=== PATIENT | male | born 1945 | race Caucasian/White ===

== ENCOUNTER 2016-09-05 07:23 | Inpatient (IN) | payer OTHER ==
[2016-08-18 08:36] VITALS: BMI 29.0
--- NOTE | 2016-08-18 13:04 | PAT Medication Instructions ---
Service Date Aug 18, 2016. Current Home Medication List Budesonide (Entocort Ec), 3 CAP PO BID Bupropion (Wellbutrin Sr), 150 MG PO BID Cholecalciferol (Vitamin D3), 1 CAP PO QAM Cyanocobalamin (Vitamin B-12), 1 TAB PO QAM Folic Acid (Folvite), 1 MG PO DAILY PRN for PRN Hydrocodone/Acetaminophen 5MG/325MG ([place] 5MG/325MG), 1 TABLET PO BID PRN for Pain Lactobacillus (Probiotic), 1 CAP PO DAILY PRN for PRN Loperamide Hcl (Imodium), 2 MG PO DAILY PRN for PRN Meloxicam (Meloxicam), 15 MG PO QAM Multiple Vitamin (Multivitamin), 1 TAB PO QAM Vitamins W/ Lipotropics (Lipoflavonoid), 1 TAB PO QAM Medication Instructions For Your Scheduled Surgery - Hold the following medications 7 days prior to surgery per surgeon instructions: Meloxicam (Meloxicam), 15 MG PO QAM - Hold the following medications the morning of surgery: Multiple Vitamin (Multivitamin), 1 TAB PO QAM Loperamide Hcl (Imodium), 2 MG PO DAILY PRN for PRN Lactobacillus (Probiotic), 1 CAP PO DAILY PRN for PRN Cholecalciferol (Vitamin D3), 1 CAP PO QAM Cyanocobalamin (Vitamin B-12), 1 TAB PO QAM Folic Acid (Folvite), 1 MG PO DAILY PRN for PRN Vitamins W/ Lipotropics (Lipoflavonoid), 1 TAB PO QAM - Take the following medications the morning of surgery with a sip of water: Hydrocodone/Acetaminophen 5MG/325MG ([place] 5MG/325MG), 1 TABLET PO BID PRN for Pain (can take up to four hours prior to surgery if needed) Bupropion (Wellbutrin Sr), 150 MG PO BID Budesonide (Entocort Ec), 3 CAP PO BID - Take the following medications as scheduled the night before surgery: Hydrocodone/Acetaminophen 5MG/325MG ([place] 5MG/325MG), 1 TABLET PO BID PRN for Pain Bupropion (Wellbutrin Sr), 150 MG PO BID If you have any questions please call us at [phone] or [phone] ( [place]) or [phone]
[2016-08-18 13:36] LABS: BASO % 0.5 %; BASO ABS # 0.03 K/uL (0-0.2); COMPLETE YES; EOS % 2.7 %; HEMATOCRIT 49.4 % (42-52); IG% 0.5 %; LYMPH % 8.7 %; LYMPH ABS # 0.57 K/uL (1.2-3.4); MEAN CELL VOLUME 85.9 fL (80-100); MEAN CORPUSCULAR HGB CONC 33.8 g/dl (32-36); MEAN PLATELET VOLUME 11.2 fL (7.4-10.4); MONO % 10.4 %; NEUT % 77.2 %; PLATELET COUNT 150 K/uL (130-400); RED BLOOD COUNT 5.75 M/uL (4.7-6.1); WHITE BLOOD COUNT 6.56 K/uL (4.8-10.8)
[2016-08-18 13:45] LABS: URINE APPEARANCE CLEAR (CLEAR); URINE BILIRUBIN NEG (NEG); URINE COLOR DK YELLOW; URINE NITRITE NEG (NEG); URINE SPECIFIC GRAVITY 1.028 (1.000-1.030); UROBILINOGEN NEG (NEG); ZZUR CULT IF INDIC CLEAN CATCH NO
--- NOTE | 2016-08-18 13:46 | DIAGNOSTIC IMAGING REPORT ---
TWO VIEW CHEST CLINICAL HISTORY: Preoperative examination. FINDINGS: PA and lateral chest radiographs are obtained. No prior studies are available for comparison at the time of dictation. The heart is top normal in size. The mediastinal contour is within normal limits. The lungs and pleural spaces are clear. There is no pneumothorax. The bony thorax appears intact. Surgical clips are noted in the left chest. IMPRESSION: No active disease in the chest. Electronically signed by: Silverio Garcia M.D. 08/18/2016 1:45 PM Dictated Date/Time: 08/18/2016 1:44 PM
[2016-08-18 13:53] LABS: MANUAL MICROSCOPIC REQUIRED? NO; REVIEW REQ? NO
[2016-08-18 13:58] LABS: PROTHROMBIN TIME (PATIENT) 10.2 SECONDS (9.0-12.0)
[2016-08-18 14:52] LABS: BUN/CREATININE RATIO 15.1 (10-20); CALCIUM 9.6 mg/dl (8.5-10.1); CREATININE 1.4 mg/dl (0.60-1.40); POTASSIUM 3.9 mmol/L (3.5-5.1)
--- NOTE | 2016-09-01 16:08 | HISTORY & PHYSICAL EXAMINATION ---
DATE OF ADMISSION: 09/05/2016 CHIEF COMPLAINT: Left hip pain. HISTORY OF PRESENT ILLNESS: Mr. Stevens is a 70-year-old male with left hip pain since 2011. His pain has gotten worse over the last year. He rates his pain a 6/10. He has pain with his daily activities. He has limited standing and walking tolerance. Pain is worse with weightbearing. The patient has had Mobic and ambulates with a cane. He has been on Medrol Dosepak as well as Whitefish with minimal relief. He has failed conservative treatment and is scheduled for left hip replacement. PAST MEDICAL HISTORY: Osteoarthritis, melanoma, BPH and Crohn's. He denies heart disease, diabetes or DVT. PAST SURGICAL HISTORY: Ileocecectomy 07/26/1999, reversal, closure of loop ileostomy 1999, melanoma excision 2005. SOCIAL HISTORY: The patient denies alcohol or tobacco use. He lives in a single floor home. He is and retired. FAMILY HISTORY: Negative for DVT. MEDICATIONS: Meloxicam 15 mg half tablet b.i.d. Entocort twice daily, loperamide 2 mg p.r.n., Lotrisone p.r.n., Wellbutrin 2 tablets daily, chlorhexidine oral rinse, folic acid 1 mg daily, probiotic, lipoflavonoid, multivitamin, MSM, vitamin B12, vitamin D3 and [place] 5/325. ALLERGIES: PENTASA AND DEMEROL. REVIEW OF SYSTEMS: See HPI. Ten other systems reviewed, all negative. PHYSICAL EXAMINATION: VITAL SIGNS: Height 5 feet 10, weight 203 pounds, BMI is 30. GENERAL: This is a well-developed, well-nourished male who is alert and oriented x3. Mood and affect are appropriate. HEENT: Normocephalic, atraumatic. Mucous membranes are moist and intact. NECK: Supple without lymphadenopathy. HEART: Regular rate and rhythm without murmurs, rubs or gallops. LUNGS: Clear to auscultation without wheezes or rhonchi. ABDOMEN: Soft and nontender. Bowel sounds are equal and active. EXTREMITIES: No ecchymosis, redness or warmth. Thigh and calf are soft and nontender. Log roll of the hip reproduces pain in the groin. He is neurovascularly intact with +5/5 strength. X-RAY EXAMINATION: AP and lateral views show joint space narrowing and osteophyte formation with partial collapse of the femoral head. IMPRESSION: Degenerative joint disease, left hip. PLAN: The patient will be admitted for a left total hip arthroplasty. We will plan on aspirin for DVT prophylaxis. The patient will have [facility] for home physical therapy. JAYCE
[~2016-09-05] VITALS: Ht 177.8 cm; Wt 92.3 kg
[2016-09-05] VITALS (9 sets, daily range): BP systolic 113–168; BP diastolic 63–97; PULSE 71–104; TEMP 36.3–36.7; O2SAT 94–100; Ht 177.8 cm; Wt 92.3 kg
[~2016-09-05 07:23] MED LIST: ACETAMINOPHEN 500 MG TAB PO SCH; BUDE1CAP6 PO; BUPIVACAINE 0.5 % 5 MG/1 ML PF 10ML VIAL ONE; BUPR-79 PO; CEFAZOLIN 2000 MG/60 ML D5W 60 ML IV SCH; CHOL2000 PO; CYAN1SUB12 PO; CeleBREX 200 MG CAP PO SCH; DEXAMETHASONE 4 MG TAB PO SCH; FAMOTIDINE 20 MG TAB PO SCH; FOLI1TAB7 PO; GABAPENTIN 300 MG CAP PO SCH; HYDR-5688 PO; IMD/2 PO; LACT1CAP6 PO; LACTATED RINGER'S 1000ML 1,000 ML IV SCH; MELO15TA4 PO; METOCLOPRAMIDE HCL 10 MG TAB PO SCH; MULTTAB58 PO; OXYCODONE HCL 10 MG TABCR (OXYCONTIN) PO SCH; POLYMYXIN B SULFATE 100,000 UNITS in NSS 100ML IR SCH; ROPIVACAINE 5MG/ML 30 ML 150 MG, BUPIVACAINE/EPINEPHR 0.5% MPF 30 ML, KETOROLAC TROMETH... INFIL SCH; TRANEXAMIC ACID INJ 1,000 MG in SODIUM CHLORIDE 0.9% 100ML 100 ML IV SCH; VANCOMYCIN INJ 400 MG in NSS 100ML IR SCH; VITATAB11 PO
[2016-09-05] MEDS ORDERED: MIDAZOLAM HCL 1 MG/ML 2ML VIAL ONE ×2 (07:27)
[2016-09-05] MEDS ORDERED: FENTANYL CITRATE INJ 50 MCG/1 ML 2 ML VIAL ONE (07:27)
--- NOTE | 2016-09-05 08:31 | History & Physical Bridge Note ---
H&P Re-Evaluation Bridge Note: I have examined the patient, reviewed the History & Physical and in the interval since the performance of the History & Physical I have noted the following changes of clinical significance: No changes noted
[2016-09-05] MEDS ORDERED: ONDANSETRON INJ 2 MG/ML 2 ML VIAL IV PRN ×2 (08:45→11:00)
[2016-09-05] MEDS ORDERED: FENTANYL CITRATE INJ 50 MCG/1 ML 2 ML VIAL IV PRN (08:45)
[2016-09-05] MEDS ORDERED: EpHEDrine SULFATE INJ 50 MG/ML AMP IV PRN (08:45)
[2016-09-05] MEDS ORDERED: ATROPINE SULFATE 0.1 MG/ML 5ML SYR IV PRN (08:45)
[2016-09-05] MEDS ORDERED: BACITRACIN 50000 UNIT VIAL ONE (08:53)
[2016-09-05] MEDS ORDERED: ORTHO JOINT ANESTHETIC ONE (08:53)
[2016-09-05] MEDS ORDERED: POVIDONE-IODINE OP SOLN 30 ML BTL ONE (08:53)
[2016-09-05] MEDS: TRANEXAMIC ACID INJ 1,000 MG in SODIUM CHLORIDE 0.9% 100ML 100 ML IV SCH ×2 (09:19→12:29)
[2016-09-05] MEDS ORDERED: EpHEDrine SULFATE 50MG/5ML SYR ONE (10:17)
[2016-09-05] MEDS ORDERED: LIDOCAINE HCL 2% 2 ML VIAL (20MG/ML) ONE (10:17)
[2016-09-05] MEDS ORDERED: ONDANSETRON INJ 2 MG/ML 2 ML VIAL ONE (10:17)
[2016-09-05] MEDS ORDERED: PROPOFOL IV EMULSION 10 MG/ML 20 ML VIAL IV ONE (10:17)
--- NOTE | 2016-09-05 10:54 | [facility] Post Operative Brief Note ---
Immediate Operative Summary Operative Date September 05, 2016. Pre-Operative Diagnosis Left Hip Degenerative Joint Disease Post-Operative Diagnosis Left Hip Degenerative Joint Disease Procedure(s) Performed Left Total Hip Arthroplasty, Direct Anterior Approach Surgeon Dr. Delgado Conn Associate Professor Of Sociology Surgeon(s) Zuleyma Samano PA-C Estimated Blood Loss 50mL Findings DJD Specimens A: Left Femoral Head Complication(s) None Disposition Recovery Room / PACU
--- NOTE | 2016-09-05 10:59 | DIAGNOSTIC IMAGING REPORT ---
LEFT HIP UNILATERAL 1 VIEW CLINICAL HISTORY: LT ANTERIOR TOTAL joint replacement COMPARISON: None. DISCUSSION: Anatomic alignment status post total left hip replacement expected soft tissue postoperative change IMPRESSION: Total left hip replacement Electronically signed by: Mac Gusman M.D. 09/05/2016 10:57 AM Dictated Date/Time: 09/05/2016 10:57 AM
[2016-09-05] MEDS ORDERED: SOD PHOSPHATE/SOD BIPHOSPHATE ENEMA 132 ML BTL PR PRN (11:00)
[2016-09-05] MEDS ORDERED: DiphenhydrAMINE HCL 50 MG/ML VIAL IV PRN (11:00)
[2016-09-05] MEDS ORDERED: BISACODYL 10 MG SUPP PR PRN (11:00)
[2016-09-05] MEDS ORDERED: MoRPHine SULFATE 2 MG/ML CARP IV PRN (11:00)
[2016-09-05] MEDS ORDERED: ZOLPIDEM TARTRATE 5 MG TAB PO PRN (11:00)
[2016-09-05] MEDS ORDERED: ALUMINUM/MAGNESIUM/SIMETH (MAALOX MAX) 30 ML UDC PO PRN (11:00)
[2016-09-05] MEDS ORDERED: METOCLOPRAMIDE HCL INJ 5 MG/ML 2 ML VIAL IV PRN (11:00)
[2016-09-05] MEDS ORDERED: OXYCODONE HCL IR 5 MG TAB (IMMEDIATE RELEASE) PO PRN (11:00)
[2016-09-05] MEDS ORDERED: MAGNESIUM HYDROXIDE SUSP 30 ML UDC PO PRN (11:00)
[2016-09-05] MEDS ORDERED: TRAMADOL HCL 50 MG TAB PO PRN (11:00)
[2016-09-05] MEDS ORDERED: LOPERAMIDE HCL 2 MG CAP PO PRN (11:00)
--- NOTE | 2016-09-05 11:40 | DIAGNOSTIC IMAGING REPORT ---
LEFT PELVIS/UNILATERAL HIP 1 VIEW CLINICAL HISTORY: IN PACU - A/P PELVIS and LATERAL HIP INCLUDING ALL OF IMPLANT COMPARISON: None. DISCUSSION: The bones and joint spaces appear intact. There is no evidence of fracture, dislocation or bony disease. There is no evidence for soft tissue swelling. IMPRESSION: Negative study. Electronically signed by: Mac Gusman M.D. 09/05/2016 11:38 AM Dictated Date/Time: 09/05/2016 11:37 AM
--- NOTE | 2016-09-05 12:16 | Anesthesiology Progress Note ---
Anesthesia Post Op Note Date & Time September 05, 2016 at 12:17 Vital Signs Pain Intensity: 0 Vital Signs Past 12 Hours Date Time Temp Pulse Resp B/P Pulse Ox O2 Delivery O2 Flow Rate FiO2 09/05/16 11:55 83 16 131/78 97 Nasal Cannula 2 09/05/16 11:45 36.0 69 13 124/80 97 Nasal Cannula 2 09/05/16 11:35 70 17 138/69 100 Mask 10 09/05/16 11:25 82 15 134/70 100 Mask 10 09/05/16 11:15 36.6 84 23 110/71 100 Mask 10 09/05/16 07:50 78 20 96 Room Air Notes Mental Status: alert / awake / arousable, participated in evaluation Pt Amnestic to Procedure: Yes Nausea / Vomiting: adequately controlled Pain: adequately controlled Airway Patency, RR, SpO2: stable & adequate BP & HR: stable & adequate Hydration State: stable & adequate Neuraxial Anesthesia: was administered, sensory block is resolving Anesthetic Complications: no major complications apparent
[2016-09-05] MEDS: D5W AND 1/2NSS + 20MEQ KCL 1,000 ML IV SCH ×2 (13:38→23:17)
[2016-09-05] MEDS: ACETAMINOPHEN 500 MG TAB PO SCH ×2 (14:21→21:20)
[2016-09-05] MEDS: KETOROLAC TROMETHAMINE 15 MG/ML VIAL IV. SCH ×2 (14:21→21:21)
[2016-09-05] MEDS ORDERED: TRANEXAMIC ACID INJ 1,000 MG in SODIUM CHLORIDE 0.9% 100ML 100 ML IV SCH (17:00)
--- NOTE | 2016-09-05 18:54 | OPERATIVE REPORT ---
DATE OF OPERATION: 09/05/2016 PREOPERATIVE DIAGNOSIS: Degenerative arthritis, left hip. POSTOPERATIVE DIAGNOSIS: Same. PROCEDURE: Left total hip replacement. SURGEON: Delgado Conn MD SODIUM CHLORITE OPERATOR: PAMELLA Walsh ANESTHESIA: Spinal. BLOOD LOSS: 50 mL. REPLACEMENT FLUIDS: 1800 mL of crystalloid. DRAINS: Hemovac x2. CULTURES: None. COMPLICATIONS: None. COMPONENTS USED: Leyva \T\ Nephew poly hip system: Acetabulum size 56, femur size 4 high offset, femoral head +4, 36 mm. NOTE: Zuleyma Samano was present and assisted throughout due to the complicated nature of this case. She helped with preparation and set up, first assisted throughout and personally closed the fascial, subcutaneous and skin layers and applied the postoperative dressing. DESCRIPTION: Following satisfactory spinal, patient was supine. The left leg was placed in the traction device, the right leg in the well leg barrientos, the left leg was prepared with ChloraPrep and draped sterilely. Following a surgical time-out, an anterior approach was performed in the interval between the sartorius and tensor muscles. Circumflex femoral vessels were identified and ligated. An anterior capsulotomy was performed exposing the arthritic femoral neck and head. The femoral neck and head were trimmed and removed. Acetabular self-retraining retractor was placed. Acetabular reaming was completed and under fluoroscopic guidance, the 56 shell was impacted and secured with a dome screw. Local anesthetic was placed. After irrigation, the polyethylene liner was placed. The femur was placed in a position of external rotation, extension and adduction. The femoral canal was prepared up to the size 4. A trial reduction with the +4 head showed samaritan of leg lengths, good soft tissue tension, and good fit and fill of the proximal canal. The hip was dislocated. The trial component was removed. The final implant was placed with fluoroscopy confirming the position and after irrigation with Betadine and a 3 minute soak, the hip was reduced and fluoroscopy confirming it. The capsule was then closed with 1 Vicryl interrupted with local anesthetic. The fascia was closed with a running suture of 1 Vicryl. The subcutaneous tissues with 2-0 Vicryl and the skin with a running subcuticular stitch of 3-0 V-Loc. Dermabond and a dry dressing were applied. The patient was returned to his bed in stable condition. I attest to the content of the Intraoperative Record and any orders documented therein. Any exceptio ns are noted below.
[2016-09-05] MEDS: CEFAZOLIN IV 2,000 MG in DEXTROSE 5% 50ML 50 ML IV SCH (19:03)
[2016-09-05] MEDS ORDERED: SENNA 8.6 MG TAB PO SCH (21:00)
[2016-09-05] MEDS: BuPROPion SR 150 MG TABCR PO SCH (21:00)
[2016-09-05] MEDS: ASPIRIN 81 MG ECTAB PO SCH (21:20)
[2016-09-06] MEDS: KETOROLAC TROMETHAMINE 15 MG/ML VIAL IV. SCH ×2 (02:08→08:34)
[2016-09-06] MEDS: CEFAZOLIN IV 2,000 MG in DEXTROSE 5% 50ML 50 ML IV SCH (02:08)
[2016-09-06 04:10] VITALS: BP 123/70; PULSE 65; TEMP 36.4; O2SAT 96
[2016-09-06] MEDS: ACETAMINOPHEN 500 MG TAB PO SCH (05:22)
[2016-09-06 06:26] LABS: COMPLETE YES; HEMATOCRIT 39.3 % (42-52); IG% 0.2 %; LYMPH ABS # 0.33 K/uL (1.2-3.4); MEAN CELL VOLUME 84.5 fL (80-100); MEAN CORPUSCULAR HEMOGLOBIN 28.4 pg (25-34); MEAN CORPUSCULAR HGB CONC 33.6 g/dl (32-36); MEAN PLATELET VOLUME 11.6 fL (7.4-10.4); MONO % 7.4 %; NEUT % 89.4 %; PLATELET COUNT 143 K/uL (130-400); RED BLOOD COUNT 4.65 M/uL (4.7-6.1); WHITE BLOOD COUNT 10.91 K/uL (4.8-10.8)
[2016-09-06 06:57] LABS: BUN/CREATININE RATIO 15.5 (10-20); CALCIUM 9.1 mg/dl (8.5-10.1); CREATININE 1.4 mg/dl (0.60-1.40); POTASSIUM 4.3 mmol/L (3.5-5.1)
--- NOTE | 2016-09-06 07:54 | Orthopedic Progress Note ---
Orthopedic Progress Note Date of Service September 06, 2016. Subjective Post OP Day: 1 (L TEA) Reports: feeling well, pain controlled w PO medications, Denies: SOB, chest pain , complaints, nausea / vomiting Objective calves soft nontender, N/V intact, hip located, dressing C/D/I, A&O x3, toes mobile, hemovac drainage (75 LAST SHIFT) Date Time Temp Pulse Resp B/P Pulse Ox O2 Delivery O2 Flow Rate FiO2 09/06/16 04:10 36.4 65 16 123/70 96 Room Air 09/05/16 23:25 36.7 71 18 113/63 96 Room Air 09/05/16 23:15 Room Air 09/05/16 19:40 36.4 104 16 134/81 94 Room Air 09/05/16 15:45 97 Nasal Cannula 2.0 09/05/16 15:15 36.3 85 16 146/82 97 Nasal Cannula 2.0 09/05/16 14:10 36.4 87 19 147/73 97 Nasal Cannula 2.0 09/05/16 13:11 168/97 09/05/16 12:40 74 18 149/83 100 2.0 09/05/16 12:10 100 Nasal Cannula 2.0 09/05/16 12:10 100 Nasal Cannula 2.0 09/05/16 12:10 36.5 75 14 131/79 100 Nasal Cannula 2.0 09/05/16 11:55 83 16 131/78 97 Nasal Cannula 2 09/05/16 11:45 36.0 69 13 124/80 97 Nasal Cannula 2 09/05/16 11:35 70 17 138/69 100 Mask 10 09/05/16 11:25 82 15 134/70 100 Mask 10 09/05/16 11:15 36.6 84 23 110/71 100 Mask 10 Laboratory Results 24 Hours: Test 09/06/16 05:45 White Blood Count 10.91 K/uL Red Blood Count 4.65 M/uL Hemoglobin 13.2 g/dL Hematocrit 39.3 % Mean Corpuscular Volume 84.5 fL Mean Corpuscular Hemoglobin 28.4 pg Mean Corpuscular Hemoglobin Concent 33.6 g/dl Platelet Count 143 K/uL Mean Platelet Volume 11.6 fL Neutrophils (%) (Auto) 89.4 % Lymphocytes (%) (Auto) 3.0 % Monocytes (%) (Auto) 7.4 % Eosinophils (%) (Auto) 0.0 % Basophils (%) (Auto) 0.0 % Neutrophils # (Auto) 9.75 K/uL Lymphocytes # (Auto) 0.33 K/uL Monocytes # (Auto) 0.81 K/uL Eosinophils # (Auto) 0.00 K/uL Basophils # (Auto) 0.00 K/uL Assessment & Plan Assessment: POD 1 L TEA Plan: HOME TODAY W [facility] HOME HEALTH DRESSINGS DRAIN OFF Inhouse Planning Pain Management: Celebrex, PO Tylenol, Oxy IR DVT Prophylaxis: TEDs, SCDs, ASA Discharge Planning Discharge Planning: home with home health Pain Management: Celebrex, PO Tylenol, Oxy IR DVT Prophylaxis: TEDs, ASA
[2016-09-06] MEDS ORDERED: LACTOBACILLUS ACIDOPHILUS (FLORANEX) TAB PO SCH (08:00)
--- NOTE | 2016-09-06 08:02 | Discharge Instructions ---
Discharge Instructions Date of Service September 06, 2016. Admission Reason for Admission: Left Hip Degenerative Arthritis Discharge Discharge Diagnosis / Problem: sp left total hip, direct anterior Discharge Goals Goal(s): Decrease discomfort, Improve function, Increase independence Activity Recommendations Activity Limitations: per Instructions/Follow-up section . Instructions / Follow-Up Instructions / Follow-Up ACTIVITY RECOMMENDATIONS: SELF CARE INSTRUCTIONS AFTER TOTAL HIP REPLACEMENT : Direct Anterior Approach Until the incision and soft tissues around your hip have healed, there is a possibility that the hip prosthesis could dislocate. A. Hip flexion ( Up & Down out of chair or steps ) may be difficult. This is normal. B. Numbness in front of the thigh is also normal for a few weeks. C. Use hand rails when walking on stairs. D. Wear low heeled shoes with non-slip soles. E. Be sure that your floors are free of things that could trip you - throw rugs , electrical cords, small objects. Avoid wet and waxed floors, especially with crutches and canes. F. Try to walk several times a day with rest periods between. G. Continue with all the exercises taught to you in the hospital. Again, make walking a part of your daily routine. SPECIAL CARE INSTRUCTIONS: VERY IMPORTANT TO READ AND REVIEW A. You may still be at risk for phlebitis and blood clots. 1. Wear surgical stockings (DESTIN hose) for 2 weeks after surgery to improve circulation and reduce swelling. 2. Take Aspirin 81mg twice daily for 4 weeks or as directed by your doctor. This is your blood thinner. 3. High risk patients may be prescribed a stronger blood thinner if necessary. 4. If you are on Coumadin normally, your family doctor/architectural job captain should monitor your blood work. Expect a phone call the day of or the day after bloodwork is drawn to adjust your dosage. B. You must take antibiotics before having dental work, bladder, bowel and other surgery. Your doctor will provide you with a permanent card to carry describing precautions. C. Call [facility] if you have a fever, redness or swelling around the incision, cloudy drainage from incision, or sudden increase in pain in your hip, not relieved by your regular pain medication. D. Please call the office at if you have any concerns or questions about your operation or recovery. * YOU MAY SHOWER, NO TUB BATHS UNTIL CLEARED BY YOUR DOCTOR. - Keep an extra close eye on the top portion of your incision. Be sure to keep clean & dry. * WEAR DESTIN HOSE 20 HOURS PER DAY FOR 2 WEEKS. * YOU MAY PROGRESS FROM A WALKER, TO A CANE, TO INDEPENDENT AT YOUR OWN PACE. * MOST PATIENTS WILL HAVE HOME NURSING FOR THERAPY. IF YOU DECIDE TO DO OUTPATIENT PHYSICAL THERAPY, PLEASE SCHEDULE THIS 3 TIMES PER WEEK. * DERMABOND Prineo- This is a mesh tape dressing that is covered with glue. It should remain in place until the incision is properly healed, usually 10-14 days. This dressing is designed to naturally slough off. You may trim the excess mesh tape as it peels off. Incision may be briefly wet in a shower. Dry immediately by blotting with a clean, dry towel. Do not bath or swim until instructed by your doctor. Do not scratch, rub, or pick at the dressing. Do not apply any topical ointments or lotions until dressing is completely removed and/or instructed by your doctor. There may be a small piece of suture material at one end of your incision. Do not pull or trim this. If it is bothersome or catching on clothing, you may cover it with a band-aid. FOLLOW UP VISIT: If appointment is not already scheduled: Please call [facility] to make a follow-up appointment for 2 weeks after your surgery at . Current Hospital Diet Patient's current hospital diet: Regular Diet Discharge Diet Recommended Diet: Regular Diet Procedures Procedures Performed: Left Total Hip Arthroplasty, Direct Anterior Approach Pending Studies Studies pending at discharge: no Medical Emergencies . Who to Call and When: Medical Emergencies: If at any time you feel your situation is an emergency, please call 911 immediately. . Non-Emergent Contact Non-Emergency issues call your: Surgeon . "Provider Documentation" section prepared by Zuleyma Samano. . VTE Core Measure Inpt VTE Proph given/why not?: Other Anticoagulation, T.E.D. Stockings, SCD's [place] Drug Monitoring Program Search Results: patient reviewed within database, no issues identified
[2016-09-06 08:03] VITALS: BP 130/70; PULSE 68; TEMP 36.6; O2SAT 97
[2016-09-06] MEDS ORDERED: ASPEC81 PO (08:04)
[2016-09-06] MEDS ORDERED: SNK PO (08:04)
[2016-09-06] MEDS ORDERED: RXC5 PO (08:04)
[2016-09-06] MEDS ORDERED: ONDA8TAB6 PO (08:04)
[2016-09-06] MEDS ORDERED: CLB200 PO (08:04)
[2016-09-06] MEDS ORDERED: ACET-1138 PO (08:04)
[2016-09-06 08:09] VITALS: O2SAT 97
[2016-09-06] MEDS: BuPROPion SR 150 MG TABCR PO SCH (08:32)
[2016-09-06] MEDS: ASPIRIN 81 MG ECTAB PO SCH (08:33)
[2016-09-06] MEDS ORDERED: BUDESONIDE EC 3 MG CAP PO SCH (09:00)
[2016-09-06] MEDS ORDERED: PANTOprazole SOD 40 MG TAB PO SCH (09:00)
[2016-09-06] MEDS ORDERED: MULTIVITAMIN TAB PO SCH (09:00)
[2016-09-06] MEDS ORDERED: CYANOCOBALAMIN 500 MCG TAB (VIT B-12) PO SCH (09:00)
[2016-09-06] MEDS ORDERED: CHOLECALCIFEROL 1000 INTER.UNIT TAB PO SCH (09:00)
[2016-09-06] MEDS: D5W AND 1/2NSS + 20MEQ KCL 1,000 ML IV SCH (09:15)
[2016-09-06 10:27] VITALS: BP 149/80; PULSE 74; O2SAT 96
--- NOTE | 2016-09-06 10:41 | Anesthesiology Progress Note ---
Anesthesia Post Op Note Date & Time September 06, 2016 at 10:41 Vital Signs Pain Intensity: 0.0 Vital Signs Past 12 Hours Date Time Temp Pulse Resp B/P Pulse Ox O2 Delivery O2 Flow Rate FiO2 09/06/16 08:09 97 Room Air 09/06/16 08:03 36.6 68 16 130/70 97 Room Air 09/06/16 04:10 36.4 65 16 123/70 96 Room Air 09/05/16 23:25 36.7 71 18 113/63 96 Room Air 09/05/16 23:15 Room Air Notes Mental Status: alert / awake / arousable, participated in evaluation Pt Amnestic to Procedure: Yes Nausea / Vomiting: adequately controlled Pain: adequately controlled Airway Patency, RR, SpO2: stable & adequate BP & HR: stable & adequate Hydration State: stable & adequate Neuraxial Anesthesia: was administered, sensory block resolved Anesthetic Complications: no major complications apparent
[2016-09-06 12:22] VITALS: BP 149/80; PULSE 74; TEMP 36.6; O2SAT 96
[2016-09-07] MEDS ORDERED: CeleBREX 200 MG CAP PO SCH (21:00)
--- NOTE | 2016-09-12 15:07 | DISCHARGE SUMMARY ---
DISCHARGE DIAGNOSIS: Degenerative joint disease, left hip. SECONDARY DIAGNOSIS: None. CONSULTS: None. COMPLICATIONS: None. PROCEDURE: The patient underwent a direct anterior left total hip arthroplasty with Dr. Conn on 09/05/2016. BRIEF HISTORY: Please see previously dictated history and physical. HOSPITAL SUMMARY: The patient underwent the above procedure on the above day without complication. Postop day 1, the patient was doing well without complaints. Vital signs were stable. He was afebrile. Dressing was clean, dry and intact. He was neurovascularly intact. Calves were soft and nontender. Hemovac drained 75 mL. Hemoglobin was 13.2. The patient began physical therapy per protocol. He progressed well and was discharged to home later that day in stable condition. For further review please see the chart. Lab, x-ray data and discharge instructions as per chart.
== END 2016-09-06 13:16 | disposition home health service (06) | DRG 470 ==
LOC: ENRESERVDT → ENRESERVTM → C.ACU 07:23 → C.3E 10:54
PROVIDERS: ADMIT Orthopaedic Surgery; ATTEND Orthopaedic Surgery
PROC: 0SRB0JA Replacement of Left Hip Joint with Synthetic Substitute, Uncemented, Open Approach (ICD-10-PCS; principal; 2016-09-05 09:30)
DX: M16.12 Unilateral primary osteoarthritis, left hip (principal); K50.90 Crohn's disease, unspecified, without complications; Z79.899 Other long term (current) drug therapy